=== PATIENT | male | born 1990 | race Caucasian/White ===

== ENCOUNTER 2021-09-07 21:22 | Emergency (ER) | payer OTHER, SELFPAY ==
[2021-09-07 21:40] VITALS: BP 139/87; PULSE 82; RESP 16; TEMP 36.7; O2SAT 97
--- NOTE | 2021-09-07 21:48 | CRLHL7_ITS ---
For Patients: As a result of the Century Cures Act, medical imaging exams and procedure reports are released immediately into your electronic medical record. You may view this report before your referring provider. If you have questions, please contact your health care provider. INDICATION: Right lower quadrant abdomen pain. TECHNIQUE: CT abdomen and pelvis acquired with 95 cc Isovue 370 IV contrast. COMPARISON: None. FINDINGS: Lower chest: Unremarkable. Liver: Unremarkable. Normal in size and attenuation. No suspicious masses. Gallbladder and bile ducts: Unremarkable. No stones or inflammation. No biliary dilatation. Pancreas: Unremarkable. No mass or inflammation. Spleen: Unremarkable. Normal in size. No masses. Adrenal glands: Unremarkable. No nodules. Kidneys: Unremarkable. No suspicious masses, stones, or hydronephrosis. GI tract: Unremarkable. Normal in caliber. No sign of mass or inflammation. Normal appendix. Vasculature: Abdominal aorta is normal in caliber. Mesenteric arteries are patent. Lymph nodes: No lymphadenopathy. Peritoneum/Abdominal Wall: Unremarkable. No sign of mass or infiltration. No free air or significant free fluid. Pelvis: Unremarkable. 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 IMPRESSION: No acute or specific finding to explain right lower quadrant abdomen pain. Specifically the appendix and GI tract are normal. Please note that all CT scans at this facility use dose modulation, iterative reconstruction, and/or weight-based dosing when appropriate to reduce radiation dose to as low as reasonably achievable. Dictated by Regis Canales MD @ 09/07/2021 10:49:02 PM (Electronically Signed)
[2021-09-07 22:01] LABS: Basophils Absolute Auto 0.03 K/uL (0.00-0.30); Basophils Percent Auto 0.4 % (0.0-3.0); Eosinophils Absolute Auto 0.22 K/uL (0.00-0.50); Eosinophils Percent Auto 2.8 % (0.0-7.0); Hematocrit 46.1 % (37.0-53.0); Hemoglobin* 15.5 gm/dL (13.5-17.5); Immature Granulocytes Abs Auto 0.01 K/uL (0.00-0.30); Lymphocytes Absolute Auto 2.67 K/uL (0.90-2.90); Lymphocytes Percent Auto 34.1 % (20-44); Mean Corpuscular HGB Conc 34 gm/dL (32-36); Mean Corpuscular Hemoglobin 31 pg (26-34); Mean Corpuscular Volume 91 fL (80-100); Monocytes Percent Auto 10.3 % (0.0-11.0); Neutrophils Absolute Auto 4.09 K/uL (1.7-7.0); Neutrophils Percent Auto 52.3 % (42.0-72.0); Platelet Count* 218 K/uL (140-440); RDW Coefficient of Variation % 12.3 % (11.5-15.5); Red Blood Count 5.09 m/uL (4.30-5.90); White Blood Count* 7.83 K/uL (4.50-11.00)
[2021-09-07 22:03] LABS: Slide Review Reflex No
--- NOTE | 2021-09-07 22:11 | ED.NURSE ---
Dr. Phillips in to assess patient. injection operator via iPad.
[2021-09-07 22:15] LABS: Chloride* 102 mmol/L (96-114); Sodium* 138 mmol/L (135-149)
[2021-09-07 22:16] LABS: Potassium* 3.5 mmol/L (3.6-5.1)
[2021-09-07 22:18] LABS: Amylase* 96 U/L (18-89); Blood Urea Nitrogen* 17 mg/dL (5-24); Carbon Dioxide* 30 mmol/L (20-32); Creatinine* 0.9 mg/dL (0.5-1.5); Estimated Glomerular Filt Rate 117.83
[2021-09-07 22:19] LABS: Glucose* 81 mg/dL (60-115)
--- NOTE | 2021-09-07 23:03 | ED.ABDPAIN ---
HPI - Abdominal Pain General Chief Complaint: Abdominal Pain Stated Complaint: PAIN IN RIGHT ABDOMEN History of Present Illness HPI narrative: Patient is a 31-year-old gentleman comes in with 1 day history of right lower quadrant pain. He has had no nausea vomiting no change in his bowel or bladder. He was seen at a different clinic earlier [facility] and was sent over as a full evaluation could not be done. He has had no similar symptoms previously and has had no other significant problems. He is otherwise in good health and has no chronic medical issues. Related Data Home Medications Medication Instructions Recorded Confirmed No Known Home Medications 09/07/21 09/07/21 Allergies Allergy/AdvReac Type Severity Reaction Status Date / Time No Known Drug Allergies Allergy Verified 09/07/21 21:46 Review of Systems Status of ROS Reports: 10 or more systems reviewed and unremarkable except as noted in History and below [facility] Medical History No significant past medical history Surgical History No significant past surgical history Social History Smoking Status: Never smoker Do you use any of these nicotine containing products: None How often do you have a drink containing alcohol: never How often do you have six or more drinks on one occasion: Never AUDIT-C Alcohol total score: 0 Non-prescribed substance use: denies use service: No Exam Narrative: Exam Narrative: EXAM GENERAL: Patient appears comfortable and well. THYROID: no thyroid nodules or thyromegaly. LYMPH: No supraclavicular or cervical lymphadenopathy. SKIN: Visible skin seen during exam normal or with benign process only. EXT: No dependent lower extremity pedal edema. HEART: Regular rate and rhythm with no murmurs, rubs, or gallops. LUNGS: Clear to auscultation bilaterally with no crackles or wheezes. ABD: Soft, non tender, non distended. PSYCH: Good eye contact, speech is not pressured. Const: Vital Signs, click to edit/add: Vital Signs - 24 hr 09/07/21 21:40 Temperature 98.0 F Pulse Rate [Right Pulse Oximeter] 82 Respiratory Rate 16 Blood Pressure [Ri ght Upper Arm] 139/87 Pulse Oximetry 97 Course Course Hospital Course: CT of the abdomen pelvis upon my review shows no acute abnormalities. CBC electrolytes amylase all normal upon my review. Vital Signs Vital signs: Initial Vital Signs Temperature 98.0 F 09/07/21 21:40 Temperature Source Temporal Artery Scan 09/07/21 21:40 Pulse Rate 82 09/07/21 21:40 Respiratory Rate 16 09/07/21 21:40 Blood Pressure 139/87 09/07/21 21:40 Blood Pressure Mean 104 09/07/21 21:40 Blood Pressure Position Sitting 09/07/21 21:40 Pulse Oximetry 97 09/07/21 21:40 Oxygen Delivery Method 09/07/21 21:40 Vital Signs Temperature 98.0 F 09/07/21 21:40 Pulse Rate 82 09/07/21 21:40 Respiratory Rate 16 09/07/21 21:40 Blood Pressure 139/87 09/07/21 21:40 Pulse Oximetry 97 09/07/21 21:40 Temperature 98.0 F 09/07/21 21:40 Pulse Rate 82 09/07/21 21:40 Respiratory Rate 16 09/07/21 21:40 Blood Pressure 139/87 09/07/21 21:40 Pulse Oximetry 97 09/07/21 21:40 MDM - Abdominal Pain MDM Narrative Medical decision making narrative: Differential diagnosis includes gastroenteritis diverticulitis appendicitis or other inflammatory abdominal condition. CT is reassuring as his lab work. Patient was seen with the aid of the assembly leader and results were reviewed with him. Lab Data Labs: Lab Results 09/07/21 09/07/21 Range/Units 21:55 21:55 WBC 7.83 (4.50-11.00) K/uL RBC 5.09 (4.30-5.90) m/uL Hgb 15.5 (13.5-17.5) gm/dL Hct 46.1 (37.0-53.0) % MCV 91 (80-100) fL MCH 31 (26-34) pg MCHC 34 (32-36) gm/dL RDW Coeff of Drew 12.3 (11.5-15.5) % Plt Count 218 (140-440) K/uL Neut % (Auto) 52.3 (42.0-72.0) % Lymph % (Auto) 34.1 (20-44) % [place] % (Auto) 10.3 (0.0-11.0) % Eos % (Auto) 2.8 (0.0-7.0) % Baso % (Auto) 0.4 (0.0-3.0) % Neut # (Auto) 4.09 (1.7-7.0) K/uL Lymph # (Auto) 2.67 (0.90-2.90) K/uL [place] # (Auto) 0.80 (0.00-0.90) K/UL Eos # (Auto) 0.22 (0.00-0.50) K/uL Baso # (Auto) 0.03 (0.00-0.30) K/uL Abs Immat Gran (auto) 0.01 (0.00-0.30) K/uL Sodium 138 (135-149) mmol/L Potassium 3.5 L (3.6-5.1) mmol/L Chloride 102 (96-114) mmol/L Carbon Dioxide 30 (20-32) mmol/L BUN 17 (5-24) mg/dL Creatinine 0.9 (0.5-1.5) mg/dL Glucose 81 (60-115) mg/dL Calcium 9.0 (8.4-10.6) mg/dL Amylase 96 H (18-89) U/L Discharge Plan Discharge Clinical Impression: Abdominal pain Patient Disposition: Home, Self-Care Condition: Stable Instructions: Abdominal Pain (ED) Activity Level: No Restrictions Discharge Diet: Regular Prescriptions: No Action No Known Home Medications 0RF Follow Up/Referrals: Provider,Not a Local [Primary Care Provider] - Stand Alone Forms: [address] [facility] Info Instructions
[2021-09-07 23:38] VITALS: BP 125/79; RESP 14
== END 2021-09-07 23:40 | disposition home or self-care (01) ==
PROVIDERS: Emergency Provider Internal Medicine
DX: R10.9 Unspecified abdominal pain (principal)
CPT/HCPCS: 36415; 74177; 80048; 82150; 85025; 99284; Q9967